=== PATIENT | female | born 1985 | race Caucasian/White ===

== ENCOUNTER 2017-03-17 20:17 | Emergency (ER) | payer MEDICAID, OTHER ==
[2017-03-17] MEDS ORDERED: ONDANSETRON 4 MG/2 ML VIAL IVP ONE (21:00)
[2017-03-17] MEDS ORDERED: NS 1,000 ML IV ONE (21:00)
[2017-03-17] MEDS: LORazepam 2 MG/ML INJ IVP ONE ×2 (21:09→21:54)
--- NOTE | 2017-03-17 21:16 | EDPHY ---
H & P Time Seen by Provider: 03/17/17 20:39 HPI/ROS: CHIEF COMPLAINT: Alcohol withdrawal HISTORY OF PRESENT ILLNESS: A 31-year-old female presents to the emergency department by private vehicle with her friend and mother with acute alcohol withdrawal. Patient is a known alcoholic. She last drank wine earlier this morning. She has a history of alcoholic hepatitis. She typically drinks "10 shots of vodka daily." Denies melena. She has had a chronic hemorrhoid for the last 7 years which has been acting up. She describes diffuse abdominal pain. She thinks "my liver is swollen". No fevers or chills. She feels nauseous although no vomiting. She has no history of alcohol withdrawal seizures. She feels depressed although he does not feel suicidal or homicidal ideation. REVIEW OF SYSTEMS: Constitutional: No fever, no chills. Eyes: No double or blurry vision. ENT: No sore throat. Respiratory: No cough, no shortness of breath. Cardiac: No chest pain. Gastrointestinal: No abdominal pain, vomiting or diarrhea. Genitourinary: No dysuria. Musculoskeletal: No neck or back pain. Skin: No rashes. Neurological: No headache. Past Medical/Surgical History: Alcoholism, alcoholic hepatitis, kidney disease Social History: Single and lives in [place] with her mother Smoking Status: Never smoked Physical Exam: General Appearance: Alert, tremulous, tearful. Mother and friend at bedside. Eyes: Pupils equal and round. Extraocular motions are all intact. ENT: Mouth: Mucous membranes are dry. Respiratory: No wheezing, rhonchi, or rales, lungs are clear to auscultation. Cardiovascular: Regular rate and rhythm. Gastrointestinal: Abdomen is soft. She has tenderness with palpation especially in the right upper quadrant and in the epigastric area. There is no rebound, guarding or masses palpated. No CVA tenderness bilaterally. Neurological: Alert and oriented x 3, cranial nerves II through XII grossly intact Skin: Warm and dry, no rashes. Musculoskeletal: Nontender to palpate along the cervical, thoracic or lumbar spine. Neck is supple. Extremities: Full range of motion and no peripheral edema. Psychiatric: Patient is oriented X 3, there is no agitation. Constitutional: Initial Vital Signs Temperature (C) 36.8 C 03/17/17 20:20 Heart Rate 104 H 03/17/17 20:20 Respiratory Rate 20 03/17/17 20:20 Blood Pressure 134/81 H 03/17/17 20:20 O2 Sat (%) 96 03/17/17 20:20 O2 Delivery Mode Room Air Allergies/Adverse Reactions: No Known Allergies Allergy (Unverified 03/17/17 20:18) Medical Decision Making ED Course/Re-evaluation: 31-year-old female presents to the emergency department with acute alcohol withdrawal. Electrolytes are unremarkable. Her AST is just barely elevated at 54. ALT is normal. BUN and creatinine are normal. Patient received IV normal saline as well as 2 mg of IV Ativan and 4 mg of Zofran IV. No witnessed seizures in the department. Family remained at bedside. I spoke with Makenna at [phone], which is where the patient is going for detox. The patient has been medically cleared. She was given 50 mg of Librium p.o. in the emergency department and will be sent with a prepack of Librium to take with her. Differential Diagnosis: Including but not limited to alcohol withdrawal, electrolyte abnormality, seizure, encephalopathy - Data Points Laboratory Results: Laboratory Results 03/17/17 21:14 03/17/17 21:14 03/17/17 03/17/17 03/17/17 22:00 21:14 21:14 WBC RBC Hgb Hct MCV MCH MCHC RDW Plt Count MPV Neut % (Auto) Lymph % (Auto) [place] % (Auto) Eos % (Auto) Baso % (Auto) Nucleat RBC Rel Count Absolute Neuts (auto) Absolute Lymphs (auto) Absolute Monos (auto) Absolute Eos (auto) Absolute Basos (auto) Absolute Nucleated RBC Immature Gran % Immature Gran # PT 15.2 SEC H SEC (12.0-15.0) INR 1.18 H (0.83-1.16) APTT 33.3 SEC SEC (23.0-38.0) Sodium Potassium Chloride Carbon Dioxide Anion Gap BUN Creatinine Estimated GFR Glucose Calcium Total Bilirubin Conjugated Bilirubin Unconjugated Bilirubin AST ALT Alkaline Phosphatase Total Protein Albumin Lipase Beta HCG, Qual NEGATIVE Urine Opiates Screen NEGATIVE (NEGATIVE) Urine Barbiturates NEGATIVE (NEGATIVE) Ur Phencyclidine Scrn NEGATIVE (NEGATIVE) Ur Amphetamine Screen NEGATIVE (NEGATIVE) U Benzodiazepines Scrn NEGATIVE (NEGATIVE) Urine Cocaine Screen NEGATIVE (NEGATIVE) U Marijuana (THC) Screen NON-NEGATIVE H (NEGATIVE) Ethyl Alcohol 03/17/17 03/17/17 21:14 21:14 WBC 5.63 10^3/uL 10^3/uL (3.80-9.50) RBC 4.03 10^6/uL L 10^6/uL (4.18-5.33) Hgb 12.6 g/dL g/dL (12.6-16.3) Hct 36.6 % L % (38.0-47.0) MCV 90.8 fL fL (81.5-99.8) MCH 31.3 pg pg (27.9-34.1) MCHC 34.4 g/dL g/dL (32.4-36.7) RDW 14.8 % % (11.5-15.2) Plt Count 195 10^3/uL 10^3/uL (150-400) MPV 9.6 fL fL (8.7-11.7) Neut % (Auto) 58.9 % % (39.3-74.2) Lymph % (Auto) 31.6 % % (15.0-45.0) [place] % (Auto) 7.6 % % (4.5-13.0) Eos % (Auto) 0.5 % L % (0.6-7.6) Baso % (Auto) 1.4 % % (0.3-1.7) Nucleat RBC Rel Count 0.0 % % (0.0-0.2) Absolute Neuts (auto) 3.31 10^3/uL 10^3/uL (1.70-6.50) Absolute Lymphs (auto) 1.78 10^3/uL 10^3/uL (1.00-3.00) Absolute Monos (auto) 0.43 10^3/uL 10^3/uL (0.30-0.80) Absolute Eos (auto) 0.03 10^3/uL 10^3/uL (0.03-0.40) Absolute Basos (auto) 0.08 10^3/uL 10^3/uL (0.02-0.10) Absolute Nucleated RBC 0.00 10^3/uL 10^3/uL (0-0.01) Immature Gran % 0.0 % % (0.0-1.1) Immature Gran # 0.00 10^3/uL 10^3/uL (0.00-0.10) PT INR APTT Sodium 137 mEq/L mEq/L (134-144) Potassium 3.7 mEq/L mEq/L (3.5-5.2) Chloride 99 mEq/L mEq/L (97-110) Carbon Dioxide 24 mEq/l mEq/l (22-31) Anion Gap 14 mEq/L mEq/L (8-16) BUN 10 mg/dL mg/dL (7-23) Creatinine 0.9 mg/dL mg/dL (0.6-1.0) Estimated GFR > 60 Glucose 74 mg/dL mg/dL (70-100) Calcium 9.8 mg/dL mg/dL (8.5-10.4) Total Bilirubin 0.8 mg/dL mg/dL (0.1-1.4) Conjugated Bilirubin 0.5 mg/dL mg/dL (0.0-0.5) Unconjugated Bilirubin 0.3 mg/dL mg/dL (0.0-1.1) AST 54 IU/L H IU/L (14-46) ALT 31 IU/L IU/L (9-52) Alkaline Phosphatase 190 IU/L H IU/L (38-126) Total Protein 8.0 g/dL g/dL (6.3-8.2) Albumin 4.3 g/dL g/dL (3.5-5.0) Lipase 186 IU/L IU/L (23-300) Beta HCG, Qual Urine Opiates Screen Urine Barbiturates Ur Phencyclidine Scrn Ur Amphetamine Screen U Benzodiazepines Scrn Urine Cocaine Screen U Marijuana (THC) Screen Ethyl Alcohol 43 mg/dL H mg/dL (0-10) Medications Given: Discontinued Medications Chlordiazepoxide (Librium 25 Mg Prepack#6) 1 btl TAKEHOME EDNOW ONE Stop: 03/17/17 22:40 Last Admin: 03/17/17 22:52 Dose: 1 btl Chlordiazepoxide HCl (Librium) 50 mg PO EDNOW ONE Stop: 03/17/17 22:04 Last Admin: 03/17/17 22:25 Dose: 50 mg Sodium Chloride (Ns) 1,000 mls @ 0 mls/hr IV ONCE ONE PRN Reason: Wide Open Stop: 03/17/17 21:01 Last Admin: 03/17/17 21:54 Dose: 1,000 mls Lorazepam (Ativan Injection) 1 mg IVP EDNOW ONE Stop: 03/17/17 21:01 Last Admin: 03/17/17 21:54 Dose: 1 mg Lorazepam (Ativan Injection) 1 mg IVP EDNOW ONE Stop: 03/17/17 22:00 Last Admin: 03/17/17 22:00 Dose: 1 mg Ondansetron HCl (Zofran) 4 mg IVP EDNOW ONE Stop: 03/17/17 21:01 Last Admin: 03/17/17 21:09 Dose: 4 mg Departure - Departure Disposition: Home, Routine, Self-Care Clinical Impression: Alcohol withdrawal Qualifiers: Complication of substance-induced condition: uncomplicated Qualified Code(s): F10.230 - Alcohol dependence with withdrawal, uncomplicated Condition: Good Instructions: Chlordiazepoxide (By mouth), Alcohol Withdrawal (ED) Additional Instructions: Go directly to detox. Referrals: ABELARDO GARCIA [Primary Care Provider] - As per Instructions [facility] Hours [Outside] - As per Instructions
[2017-03-17 21:22] LABS: PLATELET COUNT 195 10^3/uL (150-400)
[2017-03-17 21:31] LABS: INR 1.18 (0.83-1.16); PROTIME(PATIENT) 15.2 SEC (12.0-15.0)
[2017-03-17] MEDS ORDERED: LORazepam 2 MG/ML INJ ONE (21:50)
[2017-03-17] MEDS ORDERED: LORazepam 2 MG/ML INJ IVP ONE (21:59)
[2017-03-17] MEDS ORDERED: chlordiazePOXIDE 25 MG CAP PO ONE (22:03)
[2017-03-17] MEDS ORDERED: CHLORDIAZEPOXIDE 25MG PREPK#6 BTL TAKEHOME ONE (22:39)
[2017-03-17 22:57] VITALS: BP 121/79; PULSE 90; RESP 18; TEMP 97.9; O2SAT 100
== END 2017-03-17 22:57 | disposition home or self-care (01) ==
DX: F10.230 Alcohol dependence with withdrawal, uncomplicated (principal); R10.84 Generalized abdominal pain
CPT/HCPCS: 80305; 96374; G0480; J2060; J2405